=== PATIENT | female | born 1940 | race Caucasian/White ===

== ENCOUNTER 2017-02-27 17:11 | Outpatient (CLI) | payer MEDICARE | END 2017-02-27 17:12 | disposition critical access hospital (66) | LOC: EMS 17:11 | PROVIDERS: ATTEND Surgery | DX: M79.622 Pain in left upper arm (principal) | CPT/HCPCS: A0425; A0429 ==

== ENCOUNTER 2017-02-27 17:34 | Emergency (ER) | payer MEDICARE ==
--- NOTE | 2017-02-27 17:47 | ED Physician Documentation ---
History of Present Illness - Stated complaint Stated Complaint: CHEST PAIN - Chief complaint Chief Complaint: Cardiac - Additonal information Additional information: hx from pt 76 female visiting [place] from [facility] had problems with the room assigment at her hotel and became upset and developed low lateral left chest pain at approx 4 PM pain waxing and waning but constant since then no soa cough fever no leg swelling pt states she has been ill since last fall and was admitted to [facility] for pna and sepsis October 19 and then had to be dced to a SNF she came up to [place] to finally see her grandchildren and this occurred Review of Systems Constitutional: denies: Fever, Chills Throat: denies: Sore throat Cardiac: reports: Chest pain / pressure Respiratory: denies: Dyspnea, Cough GI: denies: Abdominal Pain, Nausea, Vomiting Skin: reports: Rash (noted in the ER) Neurologic: denies: Generalized weakness Endocrine: denies: Easy bruising / bleeding Immunocompromised: denies: Immunocompromised PD PAST MEDICAL HISTORY - Present Medications Home Medications: Ambulatory Orders Medication Instructions Recorded Confirmed Gabapentin 300 mg PO DAILY 02/27/17 02/27/17 Levothyroxine Sodium [Synthroid] 75 mcg PO DAILY 02/27/17 02/27/17 - Allergies Allergies/Adverse Reactions: Allergies Allergy/AdvReac Type Severity Reaction Status Date / Time aspirin Allergy Unknown Verified 02/27/17 17:41 clindamycin Allergy Unknown Verified 02/27/17 17:41 Penicillins Allergy Unknown Verified 02/27/17 17:41 Sulfa (Sulfonamide Allergy Unknown Verified 02/27/17 17:41 Antibiotics) PD ED PE NORMAL - Vitals Vital signs reviewed: Yes - General General: Alert and oriented X 3, Other (thin and frail) - Cardiac Cardiac: RRR - Respiratory Respiratory: No respiratory distress, Clear bilaterally, Other (mild diffuse to patchy non macular rash to left chest, no vesicles or ulcers or crusting) - Abdomen Abdomen: Soft, Non tender - Derm Derm: Other (see chest) - Extremities Extremities: No edema, No calf tenderness / cord - Neuro Neuro: Alert and oriented X 3 - Psych Psych: Other (anxious and tearful) Results - Vitals Vitals: Vital Signs - 24 hr 02/27/17 02/27/17 02/27/17 17:34 19:36 19:47 Temperature 37.2 C Heart Rate 71 67 69 Respiratory 18 16 18 Rate Blood Pressure 187/82 H 156/74 H 156/74 H O2 Saturation 98 96 99 02/27/17 21:59 Temperature Heart Rate 64 Respiratory 18 Rate Blood Pressure 147/80 H O2 Saturation 100 Oxygen O2 Source Room air - EKG (time done) 1812 Rate: Rate (enter#) (71) Rhythm: NSR [place]: Normal Intervals: Normal HI Ischemia: Non specific changes (flat T waves inf and ant) - Labs Labs: Laboratory Tests 02/27/17 02/27/17 02/27/17 17:43 17:45 17:45 WBC 5.2 RBC 4.27 Hgb 13.1 Hct 38.5 MCV 90.2 MCH 30.6 MCHC 33.9 RDW 12.8 Plt Count 197 MPV 8.3 Neut # 3.0 Lymph # 1.7 Breathitt # 0.5 Eos # 0.0 Baso # 0.1 Absolute Nucleated RBC 0.00 Nucleated RBCs 0.1 Sodium 142 Potassium 3.5 Chloride 105 Carbon Dioxide 28 Anion Gap 9.0 BUN 12 Creatinine 0.7 Estimated GFR (MDRD) 82 L Glucose 96 Calcium 9.5 Total Bilirubin 1.7 H AST 31 ALT 31 Alkaline Phosphatase 56 Troponin I < 0.04 Total Protein 7.4 Albumin 4.4 Globulin 3.0 Albumin/Globulin Ratio 1.5 Lipase 31 02/27/17 20:10 WBC RBC Hgb Hct MCV MCH MCHC RDW Plt Count MPV Neut # Lymph # Breathitt # Eos # Baso # Absolute Nucleated RBC Nucleated RBCs Sodium Potassium Chloride Carbon Dioxide Anion Gap BUN Creatinine Estimated GFR (MDRD) Glucose Calcium Total Bilirubin AST ALT Alkaline Phosphatase Troponin I < 0.04 Total Protein Albumin Globulin Albumin/Globulin Ratio Lipase - Rads (name of study) CXR Radiology: See rad report (spiculated pulm nodule RUL rec CT with contrast, mild right lung opacity could be scarring atelectasis or pna) CTA chest Radiology: See rad report (spiculated RUL pulm nodule 1.6X0.9 cm conerning for lung malignancy, further wup recomemnded, multiple scattered pulm nodules tonio could be mets, mild central intrahepatic bile duct dilitation (pt has no RUQ pain at all - she has lateral left chest pain), no PE, no pna) PD MEDICAL DECISION MAKING - ED course ED course: some but incomplete relief with lido patch gave 2 morphine and pt felt much better EKG and trop X 2 in ER neg makes ACS very unlikely CXR = possible opacities and also a nodule and CT was recommended so got CTA which ruled out pna and also PE but unfortunately shows possible CA Departure - Departure Disposition: Home, Self Care Clinical Impression: Chest pain Qualifiers: Chest pain type: unspecified Qualified Code(s): R07.9 - Chest pain, unspecified Condition: Good Instructions: ED Chest Pain Atypical Unkn Cause Comments: Your EKG and two sets of blood tests for your heart were fine - it does not seem you have had a heart attack The chest xray and CT scan do not show a pneumonia The CT scan also does not show a blood clot in your lungs or an aneurysm or tear of your aorta So I am not sure exactly what is causing the chest pain. It seems that your ribs are tender to touch so perhaps the pain is from the muscles and bones of your chest wall. Or perhaps the pain is due to shingles and the rash has not developed yet (please watch for a blistering and crusting rash wrapping from your back to the front and if that develops see you PMD to get viral medications ) You can use the lidocaine patches and tylenol for the pain The CT scan did show two things that need more follow up 1) you have a dilated gallbladder duct and you bilirubin level was a little elevated - but you don't have any pain over the gallbladder - I recommend an outpatient ultrasound of your gallbladder which your PMD can order for you 2) the CT scan showed possible cancer in your lungs and further work up is needed - it sounds like you already gettign a PET scan so it sounds like this possibility is already being evaluated. Please take the copy of todays CT scan with you back to your PMD And please get your blood pressure rechecked - it was a little bit high today
[2017-02-27 17:55] LABS: BASOPHILS # (AUTO) 0.1 10^3/uL (0.0-0.1); BASOPHILS % (AUTO) 1.2 %; EOSINOPHILS % (AUTO) 0.9 %; HCT - HEMATOCRIT 38.5 % (37.0-47.0); HGB - HEMOGLOBIN 13.1 g/dL (12.0-16.0); LYMPHOCYTES # (AUTO) 1.7 10^3/uL (1.5-3.5); LYMPHOCYTES % (AUTO) 31.5 %; MEAN CORPUSCULAR HEMOGLOBIN 30.6 pg (27.0-31.0); MEAN CORPUSCULAR HGB CONC 33.9 g/dL (32.0-36.0); MEAN CORPUSCULAR VOLUME 90.2 fL (81.0-99.0); MEAN PLATELET VOLUME 8.3 fL (7.9-10.8); MONOCYTES # (AUTO) 0.5 10^3/uL (0.0-1.0); MONOCYTES % (AUTO) 9.6 %; NEUTROPHILS % (AUTO) 56.8 %; NUCLEATED RED BLOOD CELLS AUTO 0.1 /100WBC; RED BLOOD COUNT 4.27 10^6/uL (4.20-5.40); RED CELL DISTRIBUTION WIDTH 12.8 % (12.0-15.0); UNCORRECTED WHITE BLOOD COUNT 5.2 x10^3/uL; WHITE BLOOD COUNT 5.2 x10^3/uL (4.8-10.8)
[2017-02-27] MEDS ORDERED: LIDOCAINE PATCH 5% TOP ONE (17:59)
[2017-02-27] MEDS: LIDOCAINE PATCH 5% TOP STA (18:00)
[2017-02-27 18:07] LABS: ALBUMIN/GLOBULIN RATIO 1.5 (1.0-2.2); BILIRUBIN,TOTAL 1.7 mg/dL (0.2-1.0); CALCIUM 9.5 mg/dL (8.5-10.3); CREATININE 0.7 mg/dL (0.4-1.0); POTASSIUM 3.5 mmol/L (3.5-5.0); TOTAL PROTEIN 7.4 g/dL (6.7-8.2)
--- NOTE | 2017-02-27 18:41 | XRAY Preliminary Report ---
Exam: XR Chest 2 View PA/LAT IMPRESSION: 1.Spiculated appearing pulmonary nodule seen in the right upper lobe measuring 1.4 x 1 cm concerning for malignancy. Recommend a chest CT preferably with IV contrast to further evaluate. 2. Mild right lower lung linear opacities, could represent focal scarring, atelectasis or mild infilt rate. Otherwise, as above. [facility] SITE ID: [id number]
--- NOTE | 2017-02-27 18:43 | XRAY Report ---
EXAM: CHEST RADIOGRAPHY EXAM DATE: 02/27/2017 06:08 PM. CLINICAL HISTORY: Chest pain. COMPARISON: None. TECHNIQUE: 2 views. FINDINGS: Lungs/Pleura: Spiculated appearing pulmonary nodule seen in the right upper lobe measuring 1.4 x 1 cm . Hyperexpanded lungs. No pleural effusion or pneumothorax. Mild right lower lung linear opacities, c ould represent focal scarring, atelectasis or mild infiltrate. Mediastinum: Mild cardiomegaly. Other: Multiple surgical clips in the right axilla. Demineralized bones. Mild compression deformities at T11 and T7 and more moderate compression deformities at T6 and T5, age indeterminate. IMPRESSION: 1.Spiculated appearing pulmonary nodule seen in the right upper lobe measuring 1.4 x 1 cm concerning for malignancy. Recommend a chest CT preferably with IV contrast to further evaluate. 2. Mild right lower lung linear opacities, could represent focal scarring, atelectasis or mild infilt rate. Otherwise, as above. [facility] Referring Provider Line: [phone] SITE ID: [id number]
[2017-02-27] MEDS ORDERED: SODIUM CHLORIDE FLUSH 0.9% 10 ML SYRINGE IVP ONE (19:17)
[2017-02-27] MEDS ORDERED: MORPHINE 2 MG/ML SYRINGE ONE (21:00)
[2017-02-27] MEDS: IOPAMIDOL-300 100 ML VIAL IVP ONE (21:11)
[2017-02-27] MEDS: MORPHINE 2 MG/ML SYRINGE IVP STA (21:15)
--- NOTE | 2017-02-27 21:50 | CT Preliminary Report ---
Exam: CT Chest Angio (PE) IMPRESSION: [facility] SITE ID: [id number]
--- NOTE | 2017-02-27 22:06 | CT Report ---
EXAM: CT ANGIOGRAM CHEST EXAM DATE: 02/27/2017 09:14 PM. CLINICAL HISTORY: Chest pain, shortness of air. COMPARISON: None. TECHNIQUE: Routine helical imaging was performed through the chest in the pulmonary arterial phase. I V Contrast: 80 mL Isovue 300. Reconstructions: Coronal 3-D MIP reconstructions.Sagittal and coronal. In accordance with CT protocol optimization, one or more of the following dose reduction techniques w ere utilized for this exam: automated exposure control, adjustment of mA and/or KV based on patient s ize, or use of iterative reconstructive technique. FINDINGS: Pulmonary Arteries: No evidence for pulmonary emboli. Lungs/Pleura: Spiculated right upper lobe pulmonary nodule at the posterior aspect contacting the [facility] major fissure, measures 1.6 x 0.9 cm. There are adjacent pulmonary nodules, one seen laterally beth suring 4 mm in the right upper lobe on axial image 55. Tiny pulmonary nodules in the right upper lobe axial image 45. More inferiorly in the right upper lobe is a focal area of linear irregular and nodu lar opacities where there appear to be some tiny nodules extending to the pleura. There is a tiny rig apex pulmonary nodule measuring 3 mm. Another pulmonary nodule in the right apex measures 4 mm see n more anteriorly. There is breathing motion artifact limiting the evaluation of the right middle lob e. Mild dependent atelectasis in the lung bases and posteriorly. Tiny pulmonary nodule laterally in the right lower lobe measuring 3 mm on axial image 30. There are a few other tiny 3 mm right lower lobe pulmonary nodules. Lingular nodular area where a pulmonary nodule is not excluded. Small pulmonary nodules with adjacent linear opacity seen posteriorly in the left upper lobe, see axial image 46. Largest nodule here patrice ures 4 mm. There appears to be a minimal amount of centrilobular emphysema. No thoracic aortic aneurysm or dissection. Borderline cardiomegaly. Prominent paratracheal lymph node measuring 9 mm. No definite mediastinal or hilar lymphadenopathy. Tiny nonspecific low density seen at the liver dome measuring 4 mm. Low-density mass in the lateral segment left hepatic lobe has Hounsfield units of 10, most suggestive for a liver cyst, measures 1.6 cm. There is reflux of contrast into the hepatic veins. There appears to be mild central intrahepatic bile duct dilatation. The common duct is not completely imaged. No acute bone findings. IMPRESSION: 1. Spiculated right upper lobe pulmonary nodule at the posterior aspect contacting the right major fi ssure, measures 1.6 x 0.9 cm. this is concerning for primary lung malignancy and further workup is re commended. There are multiple small scattered pulmonary nodules bilaterally as described above, could represent metastasis. 3. There appears to be mild central intrahepatic bile duct dilatation. The common duct is not complet farooq imaged. 4. No evidence for pulmonary emboli. 5. Otherwise, as above. [facility] Referring Provider Line: [phone] SITE ID: [id number]
[2017-02-27 23:24] VITALS: BP 135/87
== END 2017-02-27 23:26 | disposition home or self-care (01) ==
LOC: ED 17:34 → SUPCPDRO 17:34 → ED 23:26
DX: R07.9 Chest pain, unspecified (principal)
CPT/HCPCS: 36415; 71020; 71275; 80053; 83690; 84484; 85025; 93005; 96374; 99284; A9270; Q9967